=== PATIENT | female | born 1970 | race African-American/Black ===

== ENCOUNTER 2017-12-18 21:10 | Emergency (ER) | payer SELFPAY ==
[~2017-12-18 21:10] MED LIST: ANAP550T PO; PREN0.01 PO; SENN1TAB11 PO
[2017-12-18 21:33] VITALS: BP 160/89; PULSE 70; RESP 18; TEMP 98.2; O2SAT 99
--- NOTE | 2017-12-18 22:43 | PD ---
HPI Chief Complaint: Hypertension Time Seen by Provider: 22:33 Travel History International Travel<30 days: No Contact w/Intl Traveler<30days: No Traveled to known affect area: No History of Present Illness HPI This is a 47-year-old female who presents complaining of high blood pressure and headache. She reports over the past 2 days she has been having intermittent dull generalized headaches. Symptoms come and go with no obvious aggravating or relieving factors. Mild to moderate intensity. At the past family member she checked her blood pressure and it has been running consistently high over the past few days as high as 180s systolic over 90s diastolic and as low as 140 systolic. She reports that she had an issue with high blood pressure a few years ago but has not really been checking her blood pressure and a regular basis. She has not prescribed anything for high blood pressure treatment. She was in the process of attempting to move to [place] but her plans changed and she is going to be staying in the [facility] for now. She does not currently have a primary care physician. Denies chest pain, shortness of breath, nausea or vomiting, abdominal pain. She has no other complaints at this time. [facility] Past Medical History Medical History: Denies Significant Hx Diminished Hearing: No Immunizations Current: Yes ?: Not LMP: 12/12/17 Past Surgical History Surgical History: No Previous Surgery Social History Alcohol Use: No Tobacco Use: No Substance Use: No Allergies-Medications (Allergen,Severity, Reaction): Coded Allergies: latex (Unverified Allergy, Severe, 02/17/17) Reported Meds & Prescriptions Reported Meds & Active Scripts Active Reported Margaret-Colace (Senna/Docusate Sodium) 1 Tab Tab 1 Tab PO BIDPRN Anaprox Ds (Naproxen Sodium) 550 Mg Tab 550 Mg PO BIDPRN Vit ( Plus) (Prenat Multivit/Ships Or Barges Loader/Iron/Folic Ac) Tab 1 Tab PO DAILY Review of Systems Except as stated in HPI: all other systems reviewed are Neg Physical Exam Narrative GENERAL: Well-developed well-nourished female no acute distress SKIN: Warm and dry. HEAD: Atraumatic. Normocephalic. EYES: Pupils equal and round. No scleral icterus. No injection or drainage. ENT: No nasal bleeding or discharge. Mucous membranes pink and moist. NECK: Trachea midline. No JVD. CARDIOVASCULAR: Regular rate and rhythm. No murmur appreciated. RESPIRATORY: No accessory muscle use. Clear to auscultation. Breath sounds equal bilaterally. GASTROINTESTINAL: Abdomen soft, non-tender, nondistended. Hepatic and splenic margins not palpable. MUSCULOSKELETAL: No obvious deformities. No clubbing. No cyanosis. No edema. NEUROLOGICAL: Awake and alert. No obvious cranial nerve deficits. Motor grossly within normal limits. Normal speech. Data Data Last Documented VS Vital Signs Date Time Temp Pulse Resp B/P (MAP) Pulse Ox O2 Delivery O2 Flow Rate FiO2 12/18/17 22:45 63 127/68 (87) 12/18/17 21:33 98.2 18 99 Orders Orders Complete Blood Count With Diff (12/18/17 22:40) Basic Metabolic Panel (Bmp) (12/18/17 22:40) Amlodipine (Norvasc) (12/18/17 22:45) Electrocardiogram (12/18/17 ) Acetaminophen (Tylenol) (12/18/17 22:45) Ct Brain W/O Iv Contrast(Rout) (12/19/17 ) Ed Discharge Order (12/19/17 01:09) Labs Laboratory Tests Test 12/18/17 23:20 White Blood Count 4.9 TH/MM3 Red Blood Count 3.84 MIL/MM3 Hemoglobin 11.9 GM/DL Hematocrit 34.1 % Mean Corpuscular Volume 88.7 FL Mean Corpuscular Hemoglobin 31.1 PG Mean Corpuscular Hemoglobin Concent 35.0 % Red Cell Distribution Width 14.6 % Platelet Count 244 TH/MM3 Mean Platelet Volume 8.8 FL Neutrophils (%) (Auto) 40.9 % Lymphocytes (%) (Auto) 48.0 % Monocytes (%) (Auto) 7.6 % Eosinophils (%) (Auto) 2.5 % Basophils (%) (Auto) 1.0 % Neutrophils # (Auto) 2.0 TH/MM3 Lymphocytes # (Auto) 2.3 TH/MM3 Monocytes # (Auto) 0.4 TH/MM3 Eosinophils # (Auto) 0.1 TH/MM3 Basophils # (Auto) 0.0 TH/MM3 CBC Comment DIFF FINAL Differential Comment Blood Urea Nitrogen 14 MG/DL Creatinine 0.95 MG/DL Random Glucose 101 MG/DL Calcium Level 8.4 MG/DL Sodium Level 139 MEQ/L Potassium Level 3.9 MEQ/L Chloride Level 106 MEQ/L Carbon Dioxide Level 25.5 MEQ/L Anion Gap 8 MEQ/L Estimat Glomerular Filtration Rate 77 ML/MIN MDM Medical Decision Making Medical Screen Exam Complete: Yes Emergency Medical Condition: Yes Medical Record Reviewed: Yes Differential Diagnosis Essential hypertension, hypertensive urgency, hypertensive emergency, tension headache, cluster headache, pseudotumor cerebri Narrative Course Plan is for lab work, CT the brain, EKG. She will be given 5 mg of amlodipine and 650 mg of Tylenol. Prior to the administration of amlodipine her blood pressure was rechecked and it had normalized spontaneously. Her lab work is unremarkable. CT the brain is normal. EKG reveals sinus bradycardia with a rate of 55. She reports that she has been under a lot of stress in regards to almost moving to [place] and this may be causing her acutely elevated blood pressure. At this point time the plan will be to hold off on starting her on any antihypertensive medication. Recommended keeping a journal of her blood pressure readings over the next 2 weeks and a follow-up with a primary care physician for treatment if her blood pressure readings are consistently high. She is agreeable to this plan. Diagnosis Primary Impression: Elevated blood pressure reading Additional Instructions: Please provide the patient a copy of her CT report and lab work at discharge. As discussed, monitor blood pressure and a regular basis over the next 2 weeks and follow-up with a primary care physician to discuss findings. Return for any emergent medical conditions. Med/Other Pt SpecificInfo: No Change to Meds Disposition: 01 DISCHARGE HOME Condition: Stable Leoncio Beltrán Dec 18, 2017 22:43
[2017-12-18 22:45] VITALS: BP 127/68; PULSE 63
[2017-12-18] MEDS ORDERED: amLODIPine BESYLATE 5 MG TAB PO ONE (22:45)
[2017-12-18] MEDS ORDERED: ACETAMINOPHEN 325 MG TAB PO ONE (22:45)
[2017-12-18 23:53] LABS: EOSINOPHIL # 0.1 TH/MM3 (0-0.4); EOSINOPHIL % 2.5 % (0.0-4.0); HEMATOCRIT 34.1 % (35.0-46.0); HEMOGLOBIN 11.9 GM/DL (11.6-15.3); LYMPHOCYTE # 2.3 TH/MM3 (1.0-4.8); MEAN CELL VOLUME 88.7 FL (80.0-100.0); MEAN CORPUSCULAR HEMOGLOBIN 31.1 PG (27.0-34.0); MEAN PLATELET VOLUME 8.8 FL (7.0-11.0); MONO % 7.6 % (0.0-8.0); MONOCYTE # 0.4 TH/MM3 (0-0.9); NEUT % 40.9 % (16.0-70.0); PLATELET COUNT 244 TH/MM3 (150-450); RED BLOOD COUNT 3.84 MIL/MM3 (4.00-5.30); RED CELL DISTRIBUTION WIDTH 14.6 % (11.6-17.2); WHITE BLOOD COUNT 4.9 TH/MM3 (4.0-11.0)
[2017-12-19 00:03] LABS: BICARBONATE 25.5 MEQ/L (21.0-32.0); CALCIUM 8.4 MG/DL (8.5-10.1); CREATININE 0.95 MG/DL (0.50-1.00)
--- NOTE | 2017-12-19 01:05 | RADRPT ---
EXAM DATE: 12/19/2017 12:42 AM EDT AGE/SEX: 47 years / Female INDICATIONS: Hypertensive headache with no prior history. CLINICAL DATA: This is the patient's initial encounter. Patient reports that signs and symptoms have been present for 1 day and indicates a pain score of 8/10. MEDICAL/SURGICAL HISTORY: None. None. RADIATION DOSE: 56.35 CTDI (mGy) COMPARISON: No prior exams available for comparison. TECHNIQUE: CT of the head without contrast. Using automated exposure control and adjustment of the mA and/or kV according to patient size, radiation dose was kept as low as reasonably achievable to ob tain optimal diagnostic quality images. FINDINGS: Cerebrum: The ventricles are normal for age. No evidence of midline shift, mass lesion, hemorrhage or acute infarction. No extraaxial fluid collections are seen. Posterior Fossa: The cerebellum and brainstem are intact. The 4th ventricle is midline. The cerebe llopontine angle is unremarkable. Extracranial: The visualized portion of the orbits is intact. Skull: The calvaria is intact. No evidence of skull fracture. CONCLUSION: 1. Unremarkable CT brain Electronically signed by: Mike Farrell MD 12/19/2017 1:03 AM EDT
--- NOTE | 2017-12-19 13:52 | EKG ---
Date Performed: 12/18/2017 Time Performed: 23:12:09 PTAGE: 47 years EKG: SINUS BRADYCARDIA POSSIBLE LEFT ATRIAL ENLARGEMENT BORDERLINE ECG NO PREVIOUS TRACING DOCTOR: Bradly Snyder Interpretating Date/Time 12/19/2017 13:46:08
== END 2017-12-19 01:35 | disposition home or self-care (01) ==
LOC: NEPD 21:10
DX: R03.0 Elevated blood-pressure reading, without diagnosis of hypertension (principal); R51 Headache; R00.1 Bradycardia, unspecified; Z79.899 Other long term (current) drug therapy
CPT/HCPCS: 70450; 80048; 85025; 93005